=== PATIENT | male | born 1975 | race Caucasian/White ===

== ENCOUNTER 2017-10-18 08:09 | Emergency (ER) | payer MEDICAID, OTHER ==
[~2017-10-18] VITALS: Ht 182.9 cm; Wt 84.0 kg
[~2017-10-18 08:09] MED LIST: CLIN1CAP6 PO; HYDR-3533 PO
[2017-10-18 08:11] VITALS: BP 146/82; PULSE 64; RESP 14; TEMP 98.2; O2SAT 98
--- NOTE | 2017-10-18 09:11 | PD ---
HPI Chief Complaint: Back/ Neck Pain or Injury Time Seen by Provider: 09:06 Travel History International Travel<30 days: No Contact w/Intl Traveler<30days: No Traveled to known affect area: No History of Present Illness HPI 42-year-old male patient with history of no significant past medical issues, presents to the ER today for several days history of lower back pains which radiate down his left leg, states is currently a 7 out of 10, worsens with movements. He states it also radiates to his left groin area where he has had history of an inguinal hernia. He denies any fevers, incontinence, numbness or weakness, nausea, abdominal pains, vomiting, or any other symptoms. 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 He has had similar symptoms in the past but it went away in its Modifying Factors: Worse with standing and movement Associated Signs & Symptoms: Lower back pain radiation down the left leg Risk Factors: Previous history of lower back pains, PFSH Past Surgical History Other Surgery: Yes (HERNIA REPAIR) Social History Alcohol Use: Yes (~5X WEEKLY) Tobacco Use: No Substance Use: No Allergies-Medications (Allergen,Severity, Reaction): Coded Allergies: No Known Allergies (Unverified Adverse Reaction, Unknown, 10/18/17) Reported Meds & Prescriptions Reported Meds & Active Scripts Active Lortab 5 mg/325 mg (Hydrocodone/Acetaminophen 5 mg/325 mg) 1 Tab 1 Tab PO Q6H PRN Clindamycin Hcl (Clindamycin HCl) 300 Mg Cap 300 Mg PO TID 10 Days Review of Systems Except as stated in HPI: all other systems reviewed are Neg Physical Exam Narrative GENERAL: Well-developed middle age white male patient currently in mild distress at awake and oriented 3. He is ambulatory in the ER without issues. SKIN: Focused skin assessment warm/dry. HEAD: Atraumatic. Normocephalic. EYES: Pupils equal and round. No scleral icterus. No injection or drainage. ENT: No nasal bleeding or discharge. Mucous membranes pink and moist. NECK: Trachea midline. No JVD. CARDIOVASCULAR: Regular rate and rhythm. No murmur appreciated. RESPIRATORY: No accessory muscle use. Clear to auscultation. Breath sounds equal bilaterally. GASTROINTESTINAL: Abdomen soft, non-tender, nondistended. Hepatic and splenic margins not palpable. No palpable inguinal hernia, nontender to palpation with no masses. MUSCULOSKELETAL: No obvious deformities. No clubbing. No cyanosis. No edema. BACK: No CVA tenderness. No rash. No point tenderness on palpation of the spine. No saddle anesthesia. NEUROLOGICAL: Awake and alert. No obvious cranial nerve deficits. Motor grossly within normal limits. Normal speech. PSYCHIATRIC: Appropriate mood and affect; insight and judgment normal. Data Data Last Documented VS Vital Signs Date Time Temp Pulse Resp B/P (MAP) Pulse Ox O2 Delivery O2 Flow Rate FiO2 10/18/17 08:11 98.2 64 14 146/82 (103) 98 Orders Orders Ed Discharge Order (10/18/17 09:07) MDM Medical Decision Making Medical Screen Exam Complete: Yes Emergency Medical Condition: Yes Medical Record Reviewed: Yes Differential Diagnosis Lower back pains: Muscle strain versus lumbar radiculopathy versus sciatica versus inguinal hernia Narrative Course On physical exam, patient has no incarcerated inguinal hernia, no groin masses. He is ambulatory in the ER and able to get up and off the bed on his own without issues, able to shift in bed without issues. He has no saddle anesthesia and denies any IV drug use. He apparently works as a cnc machine setter and has had similar issues in the past although it usually goes away on its own. At this point, I'm not suspecting other acute processes although he may have some underlying lumbar radiculopathy versus muscle spasms. My plan would be to treat him symptomatic the at this time and have him follow-up closely with primary care doctor. She symptoms become more consistent, or he has worsening in pains, fevers, incontinence, or other symptoms, he may need further evaluation and imaging. The plan has been discussed with him and he states understanding. Diagnosis Primary Impression: Lumbago with sciatica, left side Med/Other Pt SpecificInfo: Prescription(s) given Scripts Cyclobenzaprine (Flexeril) 10 Mg Tab 10 MG PO TID for Muscle Spasm, #20 TAB 0 Refills Prov: Shima De La Cruz MD 10/18/17 Ibuprofen (Ibuprofen) 600 Mg Tab 600 MG PO Q6H Y for PAIN, #20 TAB 0 Refills Prov: Shima De La Cruz MD 10/18/17 Disposition: 01 DISCHARGE HOME Condition: Stable Soontharothai,Rewadee MD Oct 18, 2017 09:11
[2017-10-18] MEDS ORDERED: CYCL10TA PO (09:23)
[2017-10-18] MEDS ORDERED: IBUP-232 PO (09:23)
[2017-10-18 09:32] VITALS: BP 140/68
== END 2017-10-18 09:33 | disposition home or self-care (01) ==
LOC: NEPC 08:09
DX: M54.42 Lumbago with sciatica, left side (principal)
CPT/HCPCS: 99283

== ENCOUNTER 2017-10-21 08:12 | Emergency (ER) | payer MEDICAID ==
[~2017-10-21 08:12] MED LIST changes: +CYCL10TA PO; +IBUP-232 PO
[2017-10-21 08:15] VITALS: BP 168/97; PULSE 68; RESP 16; TEMP 98.1; O2SAT 100
--- NOTE | 2017-10-21 08:59 | PD ---
HPI . left knee pain Chief Complaint: Pain: Acute or Chronic Time Seen by Provider: 08:26 Travel History International Travel<30 days: No Contact w/Intl Traveler<30days: No Traveled to known affect area: No History of Present Illness HPI 42-year-old male patient presents emergency department for evaluation of left knee pain after slipping on water and twisting his knee and his kitchen yesterday. Patient has been ambulatory with a limp. Left leg is neurovascularly intact. There is no obvious deformity, bruising, ecchymosis, erythema, cyanosis. Patient can flex and extend the knee fully. Patient states he has a history of torn meniscus in the left knee and feels like he may have torn it again. Patient denies any other major medical history and does not take any daily medication. Patient denies any other injuries when he slipped on water. Patient did not hit his head or lose consciousness. PFSH Past Surgical History Other Surgery: Yes (HERNIA REPAIR) Social History Alcohol Use: Yes (~5X WEEKLY) Tobacco Use: No Substance Use: No Allergies-Medications (Allergen,Severity, Reaction): Coded Allergies: No Known Allergies (Unverified Adverse Reaction, Unknown, 10/18/17) Reported Meds & Prescriptions Reported Meds & Active Scripts Active Flexeril (Cyclobenzaprine HCl) 10 Mg Tab 10 Mg PO TID Ibuprofen 600 Mg Tab 600 Mg PO Q6H PRN Review of Systems Except as stated in HPI: all other systems reviewed are Neg Musculoskeletal: Positive: Pain (left knee) Physical Exam Narrative GENERAL: Well-nourished, well-developed 42-year-old male patient that is dramatic, grabbing his knee and demanding pain medication. SKIN: Focused skin assessment warm/dry. HEAD: Normocephalic. Atraumatic. EYES: No scleral icterus. No injection or drainage. NECK: Supple, trachea midline. No JVD or lymphadenopathy. CARDIOVASCULAR: Regular rate and rhythm without murmurs, gallops, or rubs. RESPIRATORY: Breath sounds equal bilaterally. No accessory muscle use. GASTROINTESTINAL: Abdomen soft, non-tender, nondistended. MUSCULOSKELETAL: Full flexion and extension of left knee noted. No obvious deformity, ecchymosis, erythema, cyanosis, or edema. Data Data Last Documented VS Vital Signs Date Time Temp Pulse Resp B/P (MAP) Pulse Ox O2 Delivery O2 Flow Rate FiO2 10/21/17 08:15 98.1 68 16 168/97 (120) 100 Orders Orders Knee, Complete (4vws) (10/21/17 08:26) Ice/Cold Pack (10/21/17 08:26) MDM Medical Decision Making Medical Screen Exam Complete: Yes Emergency Medical Condition: Yes Differential Diagnosis Differential diagnoses include but not limited to knee contusion, knee sprain, patellar dislocation, patellar fracture, torn meniscus Narrative Course 42-year-old male patient presents emergency department for evaluation of left knee pain. X-ray of the left knee ordered and pending. Ice applied to the left knee. Ibuprofen given for pain management. Yuniel wrap applied to left knee. Patient given crutches. Patient discharged home with instructions to follow-up with his orthopedist or return to emergency Department with any worsening condition Diagnosis Primary Impression: Left knee sprain Qualified Codes: S83.92XA - Sprain of unspecified site of left knee, initial encounter Referrals: Orthopedist Patient Instructions: General Instructions, Knee Sprain (ED) Additional Instructions: Please return to emergency department if your symptoms return or worsen. Follow up with your primary care provider. May take [id number] ibuprofen or Tylenol as needed for pain. Rice therapy to left knee, rest, ice, Yuniel wrap with activity and elevate with resting. Disposition: 01 DISCHARGE HOME Condition: Stable Tea Nuno Oct 21, 2017 08:59
--- NOTE | 2017-10-21 09:01 | RADRPT ---
EXAM DATE/TIME: 10/21/2017 08:32 [facility] COMPARISON: No previous studies available for comparison. INDICATIONS : Left knee pain, fell MEDICAL HISTORY : Left knee meniscus tear SURGICAL HISTORY : left knee meniscus repair ENCOUNTER: Initial ACUITY: 1 day PAIN SCORE: 10/10 LOCATION: Left Knee FINDINGS: Four view examination of the left knee demonstrates no evidence of fracture or dislocation. Bony min eralization is normal. The articular surfaces are intact. The suprapatellar soft tissues have a nor mal configuration. CONCLUSION: Unremarkable examination of the left knee. Emanuel Cantu Jr., MD on October 21, 2017 at 8:57 Board Certified Radiologist. This report was verified electronically.
[2017-10-21] MEDS ORDERED: IBUPROFEN 600 MG TAB PO ONE (09:15)
== END 2017-10-21 09:34 | disposition home or self-care (01) ==
LOC: NEPK 08:12
DX: S83.92XA Sprain of unspecified site of left knee, initial encounter (principal); W01.0XXA Fall on same level from slipping, tripping and stumbling without subsequent striking against object, initial encounter; Y93.01 Activity, walking, marching and hiking; Y92.000 Kitchen of unspecified non-institutional (private) residence as the place of occurrence of the external cause
CPT/HCPCS: 73564; 99282; E0113

== ENCOUNTER → 2017-12-15 | Day surgery (SDC) | payer OTHER, MEDICAID ==
[~2017-12-15] MED LIST changes: +ACETAMINOPHEN/HYDROcodone 325 MG/5 MG TAB; -CLIN1CAP6 PO; -CYCL10TA PO; -HYDR-3533 PO; -IBUP-232 PO; +KETOROLAC TROMETHAMINE 30 MG/ML (IVP) VIAL IV PUSH; +LACTATED RINGER'S 1000 ML INJ 1,000 ML; +MIDAZOLAM HCL 2 MG/2 ML VIAL; +ONDANSETRON HCL 4 MG/2 ML VIAL IV PUSH; +PROPOFOL 200 MG/20 ML AMP IV; +ceFAZolin INJ 1,000 MG VIAL
== END | disposition home or self-care (01) ==
LOC: ESDC 14:14
DX: S83.232A Complex tear of medial meniscus, current injury, left knee, initial encounter (principal)
CPT/HCPCS: 01400